=== PATIENT | female | born 1985 | race Caucasian/White ===

== ENCOUNTER 2017-08-24 19:03 | Emergency (ER) | payer MEDICAID ==
[~2017-08-24] VITALS: Ht 172.7 cm; Wt 83.5 kg
[2017-08-24 19:10] VITALS: BP 122/72
== END 2017-08-24 21:32 | disposition home or self-care (01) ==
LOC: ER 19:03
DX: R42 Dizziness and giddiness (principal)
CPT/HCPCS: 70450; 93005